=== PATIENT | male | born 1975 | race Caucasian/White ===

== ENCOUNTER → 2024-10-23 14:11 | Outpatient (CLI) | payer OTHER, SELFPAY ==
--- NOTE | 2024-10-23 14:17 | DI.RAD.S_ITS ---
PROCEDURE: XR CERVICAL SPINE 2V OR 3V INDICATIONS: BACK PAIN TECHNIQUE: Three views of the cervical spine were acquired. COMPARISON: None. FINDINGS: Cervical spine curvature and alignment: Normal. Bones: There are no osseous abnormalities. Disc spaces: Moderate C5-6 mild C6-7 degenerative disc disease noted. Moderate C3-4 mild C4-5 C5-6 degenerative facet disease Soft tissues: No soft tissue swelling, calcification or mass. IMPRESSION: Degeneration Dictated by: Ben Rice M.D. on 10/24/2024 at 11:47 Approved by: Ben Rice M.D. on 10/24/2024 at 11:48
== END ==
LOC: RAD 14:16
PROVIDERS: Referring Provider Chiropractor; Visit Provider Chiropractor
DX: M47.812 Spondylosis without myelopathy or radiculopathy, cervical region (principal); M50.321 Other cervical disc degeneration at C4-C5 level; M54.9 Dorsalgia, unspecified
CPT/HCPCS: 72040